=== PATIENT | female | born 1930 | race Caucasian/White ===

== ENCOUNTER → 2019-08-27 | Outpatient (CLI) | payer MEDICARE | END | disposition home or self-care (01) | LOC: CFH 08:20 | PROVIDERS: ATTEND Nurse Practitioner Family | DX: M16.0 Bilateral primary osteoarthritis of hip (principal); R22.42 Localized swelling, mass and lump, left lower limb; M47.816 Spondylosis without myelopathy or radiculopathy, lumbar region; I70.0 Atherosclerosis of aorta; R19.04 Left lower quadrant abdominal swelling, mass and lump; R35.0 Frequency of micturition; L20.9 Atopic dermatitis, unspecified; Z68.26 Body mass index [BMI] 26.0-26.9, adult | CPT/HCPCS: 72192 ==

== ENCOUNTER 2020-09-09 08:10 | Outpatient (CLI) | payer MEDICARE ==
[2020-09-09] MEDS ORDERED: LIDOCAINE 1%, 10ML ONE (08:23)
== END 2020-09-09 23:59 | disposition home or self-care (01) ==
LOC: RAD 08:10
PROVIDERS: ATTEND Student in an Organized Health Care Education/Training Program
DX: C82.15 Follicular lymphoma grade II, lymph nodes of inguinal region and lower limb (principal)
CPT/HCPCS: 38505; 76942; 88305; 88333; 88341; 88342